=== PATIENT | female | born 1995 | race Caucasian/White ===

== ENCOUNTER 2017-02-19 17:45 | Emergency (ER) | payer BC, OTHER ==
--- NOTE | 2017-02-19 18:12 | UCPHY ---
H & P Time Seen by Provider: 02/19/17 18:08 Patient Type: New HPI/ROS: 19-year-old female presents complaining of last night she ran into a tree branch at hit her scalp and then she noticed today that she has a small lump in her head and she is worried about a retained foreign body. Review of systems As per HPI General no fever no chills no weakness HEENT no eye pain no eye discharge. No eye redness, no sore throat Respiratory no cough, no shortness of breath Cardiac no chest pain, no peripheral edema GI no abdominal pain, no diarrhea, no constipation, no nausea, no vomiting no flank pain, no hematuria, no dysuria Musculoskeletal no myalgias, no joint pain Heme no easy bruising, no easy bleeding Endo no polyuria, no polydipsia Skin no rashes, no pruritus Neuro no syncope, no dizziness, no headaches Psych is no suicidal ideation, no homicidal ideation Past Medical/Surgical History: Attention deficit hyperactivity disorder Social History: Alcohol socially, denies excessive drug use Smoking Status: Never smoked Physical Exam: 21-year-old female alert and oriented Alert and oriented in no acute distress nontoxic appearance, afebrile Atraumatic normocephalic Scalp-right parieto-occipital small abrasion with crusting approximately 3 x 3 mm, no palpable foreign body Neck no JVD Lungs clear to auscultation, no respiratory distress Heart regular rate and rhythm Extremities no cyanosis clubbing edema Constitutional: Initial Vital Signs Temperature (C) 36.6 C 02/19/17 17:54 Heart Rate 77 02/19/17 17:54 Respiratory Rate 18 02/19/17 17:54 Blood Pressure 142/74 H 02/19/17 17:54 O2 Sat (%) 97 02/19/17 17:54 O2 Delivery Mode Room Air Allergies/Adverse Reactions: Penicillins Allergy (Verified 02/19/17 17:54) Home Medications: Medication Instructions Recorded Adderall 10 MG (*) 02/19/17 Medical Decision Making ED Course/Re-evaluation: Patient seen and evaluated for scalp abrasion with possible foreign body Exam no evidence for foreign body Scalp abrasion cleansed and crusting removed still no evidence of foreign body Impression Scalp abrasion Minor head injury Plan Discharge - Data Points Medications Given: Discontinued Medications Tetracaine/Epinephrine/Lidocaine (Let Gel Topical) 1 ea TP EDNOW ONE Stop: 02/19/17 18:18 Last Admin: 02/19/17 18:19 Dose: 1 ea Departure - Departure Disposition: Home, Routine, Self-Care Clinical Impression: Scalp abrasion Condition: Good Instructions: Concussion (ED), Scalp Contusion in Adults (ED) Additional Instructions: Follow-up with your primary care physician if not feeling improved in the next few days Referrals: Kristen Florence MD [Primary Care Provider] - As per Instructions Stand Alone Forms: Statement of Treatment - PQRS PQRS Measurement: na
[2017-02-19] MEDS ORDERED: LET GEL TOPICAL 1 EA SYR TP ONE (18:17)
[2017-02-19 18:59] VITALS: BP 136/72; PULSE 72; RESP 16; TEMP 97.9; O2SAT 96
== END 2017-02-19 18:55 | disposition home or self-care (01) ==
LOC: CED 17:45
DX: S00.01XA Abrasion of scalp, initial encounter (principal); W22.09XA Striking against other stationary object, initial encounter
CPT/HCPCS: 99203-PO; G0463-PO